=== PATIENT | male | born 1985 | race Caucasian/White ===

== ENCOUNTER 2017-10-03 13:56 | Inpatient (IN) ==
[2017-10-03] MEDS ORDERED: methylPREDNISolone 125 MG/2 ML VIAL IVP ONE (14:11)
[2017-10-03] MEDS ORDERED: Ipratropium/Albuterol Neb 3 ML IH ONE (14:11)
--- NOTE | 2017-10-03 14:15 | Emergency Department Note ---
Disposition Clinical Impression: Asthma with exacerbation, Severe persistent asthma, Influenza A, Fever Disposition: Admitted As Inpatient Condition: Good Time of Disposition: 15:56 SOB HPI - General Chief Complaint: ED Shortness of Breath/Dyspnea Stated Complaint: "asthma" Time Seen by Provider: 10/03/17 14:04 Source: patient Mode of arrival: ambulatory Limitations: no limitations Nursing Notes Reviewed: Yes Vital Signs Reviewed: Yes - History of Present Illness Patient presents to the ED with chief complaint of shortness of breath. Patient has a history of asthma that is quite severe and uncontrolled requiring multiple admissions and previous intubations. States he recently underwent thermoplasty here, which did not help. States he is on multiple maintenance medicines, but no daily oral steroids. 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 Last night he started having difficulty breathing and woke up this morning and it was significantly worse. Has a nonproductive cough, fever up to 102. States he feels very rundown and tired. He said a few episodes of vomiting that he describes as posttussive emesis. No abdominal pain or diarrhea. States he normally goes to urgent care, but they were closed today and he feels a lot worse than his usual attacks. - Related Data Home Medications Medication Instructions Recorded Confirmed Fluticasone Propionate Nasal 1 spr NS BID 10/12/16 10/03/17 [Flonase] Loratadine [Allergy Relief] 10 mg PO HS 10/12/16 10/03/17 Montelukast [Singulair] 10 mg PO HS 10/12/16 10/03/17 Ranitidine HCl [Zantac] 300 mg PO HS 10/12/16 10/03/17 Budesonide/Formoterol 160/4.5 2 puff IH BIDR 10/03/17 10/03/17 [Symbicort 160/4.5] Losartan/Hydrochlorothiazide 1 each PO DAILY 10/03/17 10/03/17 [Hyzaar 100-25 Tablet] Tiotropium [place] [Spiriva 2 puff IH DAILY 10/03/17 10/03/17 Respimat] Previous Rx's Medication Instructions Recorded Albuterol Sulfate [Albuterol 2 puff IH Q4HR PRN #1 hfa.aer.ad 09/12/15 Inhaler] Allergies Allergy/AdvReac Type Severity Reaction Status Date / Time Amoxicillin Allergy Hives Verified 10/03/17 14:01 levofloxacin [From Levaquin] Allergy Hives Verified 10/12/16 08:34 Penicillins Allergy Hives Verified 10/12/16 08:34 fluticasone AdvReac Nose Bleed Verified 10/12/16 08:34 [From Advair Diskus] salmeterol AdvReac Nose Bleed Verified 10/12/16 08:34 [From Advair Diskus] All systems ED: reviewed and negative except as stated. Constitutional: Reports: fever Cardiovascular: Reports: chest pain Respiratory: Reports: cough, dyspnea, wheezes. Denies: sputum production Gastrointestinal: Reports: nausea, vomiting Neurological: Denies: headache Endocrine: Reports: fatigue Past Medical History - Past Medical History Attestation: Yes The following information was validated with the patient. Source: patient Medical history: Reports: asthma, hypertension Surgical history: Reports: other Psychiatric history: Reports: no psych history - Social History Smoking Status: Never smoker Smokeless Tobacco Status: Yes Alcohol use: Reports: none Drug use: Reports: none Physical Exam - General Limitations: no limitations General appearance: alert, in no apparent distress - Head Head exam: atraumatic, normocephalic, normal inspection - ENT ENT exam: normal exam, normal oropharynx, mucous membranes moist - Chest Chest inspection: Present: normal inspection, symmetric chest wall rise - Respiratory Respiratory exam: Present: respiratory distress (mild), wheezes (throughout, poor inspiration ), prolonged expiratory phase. Absent: normal lung sounds bilaterally, accessory muscle use - Cardiovascular Cardiovascular exam: Present: normal rhythm, tachycardia, normal heart sounds. Absent: regular rate - Abdominal Exam Abdominal exam: Present: soft, Non-Tender. Absent: tenderness, distention, guarding, rebound, rigidity - Extremities Exam Extremities exam: Present: normal inspection, full ROM. Absent: tenderness, pedal edema - Neurological Exam Neurological exam: Present: alert, oriented X3 - Psychiatric Psychiatric exam: Present: normal affect, normal mood - Skin Skin exam: Present: warm, dry, intact, normal color Course Course Narrative: Patient presenting with asthma exacerbation. We will give nebs, steroids and magnesium if necessary due to his long-standing history of severe asthma - Reevaluation(s) Reevaluation #1: Patient sounding better after nebs but still wheezing throughout. He also is flu positive. Will start Tamiflu and due to his history. We will admit him to the hospital for continued nebulized treatments and respiratory function monitoring. Patient agreeable to plan Vital Signs Temperature 101.5 F H 10/03/17 13:58 Pulse Rate 121 10/03/17 13:58 Respiratory Rate 20 10/03/17 13:58 Blood Pressure 143/86 10/03/17 13:58 O2 Sat by Pulse Oximetry 92 10/03/17 13:58 Temperature 101.5 F H 10/03/17 13:58 Pulse Rate 121 10/03/17 13:58 Respiratory Rate 20 10/03/17 14:19 Blood Pressure 143/86 10/03/17 13:58 O2 Sat by Pulse Oximetry 94 10/03/17 14:19 Oxygen Delivery Oxygen Delivery Room Air Shortness of Breath/Dyspnea - Medical Records Medical records reviewed: Yes I reviewed the patient's medical records. - Lab Data Lab results reviewed: Yes I reviewed the patient's lab results. Result diagrams: 10/03/17 14:29 10/03/17 14:29 Lab Results 10/03/17 10/03/17 10/03/17 Range/Units 14:29 14:29 14:29 WBC 12.3 H (4.3-11.1) K/mcL RBC 5.13 (4.19-5.50) M/mcL Hgb 15.7 (12.9-16.9) g/dL Hct 46.7 (37.5-50.1) % MCV 91.0 (83.0-100.0) fL MCH 30.6 (28.0-33.3) pg MCHC 33.6 (31.6-35.5) g/dL RDW 14.6 H (11.5-14.5) % Plt Count 333 (140-400) K/mcL MPV 8.4 L (9.4-12.4) fL Immature Gran % 0.6 (0-4) % Seg Neutrophils % 70.9 % Lymphocytes % 10.2 % Monocytes % 17.2 % Eosinophils % 0.7 % Basophils % 0.4 % Neutrophils # 8.7 (1.6-8.9) K/mcL Lymphocytes # 1.3 (0.6-4.6) K/mcL Monocytes # 2.1 H (0.0-1.3) K/mcL Eosinophils # 0.1 (0.0-0.6) K/mcL Basophils # 0.1 (0.0-0.2) K/mcL Sodium 136 (136-145) mEq/L Potassium 4.2 (3.5-5.1) mEq/L Chloride 101 (98-107) mEq/L Carbon Dioxide 26 (23-29) mEq/L BUN 22 H (6-20) mg/dL Creatinine 1.15 (0.70-1.30) mg/dL Est GFR ( Amer) > 60 (> 60) Est GFR (Non-Af Amer) > 60 (> 60) BUN/Creatinine Ratio 19 (6-26) Glucose 99 (70-105) mg/dL Calculated Osmolality 285 (280-300) Lactic Acid 1.2 (0.5-2.2) mmol/L Calcium 9.0 (8.6-10.3) mg/dL Troponin I (< 0.04) ng/mL 10/03/17 Range/Units 14:29 WBC (4.3-11.1) K/mcL RBC (4.19-5.50) M/mcL Hgb (12.9-16.9) g/dL Hct (37.5-50.1) % MCV (83.0-100.0) fL MCH (28.0-33.3) pg MCHC (31.6-35.5) g/dL RDW (11.5-14.5) % Plt Count (140-400) K/mcL MPV (9.4-12.4) fL Immature Gran % (0-4) % Seg Neutrophils % % Lymphocytes % % Monocytes % % Eosinophils % % Basophils % % Neutrophils # (1.6-8.9) K/mcL Lymphocytes # (0.6-4.6) K/mcL Monocytes # (0.0-1.3) K/mcL Eosinophils # (0.0-0.6) K/mcL Basophils # (0.0-0.2) K/mcL Sodium (136-145) mEq/L Potassium (3.5-5.1) mEq/L Chloride (98-107) mEq/L Carbon Dioxide (23-29) mEq/L BUN (6-20) mg/dL Creatinine (0.70-1.30) mg/dL Est GFR ( Amer) (> 60) Est GFR (Non-Af Amer) (> 60) BUN/Creatinine Ratio (6-26) Glucose (70-105) mg/dL Calculated Osmolality (280-300) Lactic Acid (0.5-2.2) mmol/L Calcium (8.6-10.3) mg/dL Troponin I < 0.03 (< 0.04) ng/mL - Radiology Data Radiology results reviewed: Yes I reviewed the patient's radiology results. - EKG Data EKG attestation: Yes I reviewed and interpreted this EKG. EKG results narrative: Sinus tach, rate 112, [place] interval 144, QRS 98, QTC 359, normal axis, no acute ischemic changes Attestation Statement - Attestation Attestation: I examined this patient and my medical decision-making was reviewed with the Resident Physician, Dr. Forman. I agree with the documented findings, disposition and treatment plan as described except to the extent set forth below. Patient is a 32-year-old white male with a history of severe asthma his had multiple admissions and prior intubations related to exacerbations in the past. 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 Patient states last night he began "not feeling well with mild upper respiratory symptoms generalized body aches and subjective fevers. Patient states this morning he was having worsening shortness of breath wheezing and came into the emergency department for evaluation. On arrival here he was moving very little air, hypoxic on room air and febrile. He should was complaining of 2 episodes of posttussive emesis he had this morning which was nonbloody. Agree patient's physical exam findings as documented. Patient was having respiratory distress on arrival with hypoxia and febrile. Patient was seen immediately and respiratory was called to start continuous DuoNeb treatments, IV was established IV steroids were administered patient was given antipyretics for fever and started on fluids. Labs were drawn and sent including cultures and influenza swab. Chest x-ray was also obtained. Chest x-ray is unremarkable for any infiltrates or changes. Influenza swab was positive for influenza A and otherwise labs unremarkable. Tamiflu was started IV and patient will be admitted for persistent severe asthma attack. Case was discussed with the hospitalist who accepted patient for admission.
[2017-10-03 14:34] LABS: Basophils # 0.1 K/mcL (0.0-0.2); Basophils % 0.4 %; Eosinophils # 0.1 K/mcL (0.0-0.6); Eosinophils % 0.7 %; Hematocrit 46.7 % (37.5-50.1); Hemoglobin 15.7 g/dL (12.9-16.9); Immature Granulocytes % 0.6 % (0-4); Lymphocytes # 1.3 K/mcL (0.6-4.6); Lymphocytes % 10.2 %; Mean Corpuscular HGB Conc 33.6 g/dL (31.6-35.5); Mean Corpuscular Hemoglobin 30.6 pg (28.0-33.3); Mean Platelet Volume 8.4 fL (9.4-12.4); Monocytes # 2.1 K/mcL (0.0-1.3); Monocytes % 17.2 %; Neutrophils # 8.7 K/mcL (1.6-8.9); Platelet Count 333 K/mcL (140-400); Red Blood Count 5.13 M/mcL (4.19-5.50); Red Cell Distribution Width 14.6 % (11.5-14.5); Segmented Neutrophils % 70.9 %
[2017-10-03 14:50] LABS: BUN/Creatinine Ratio 19 (6-26); Blood Urea Nitrogen 22 mg/dL (6-20); Carbon Dioxide 26 mEq/L (23-29); Chloride 101 mEq/L (98-107); Glucose 99 mg/dL (70-105); Osmolality,Calculated 285 (280-300); Potassium 4.2 mEq/L (3.5-5.1); Sodium 136 mEq/L (136-145); eGFR For African Americans > 60 (> 60); eGFR For Non-African Americans > 60 (> 60)
[2017-10-03] MEDS ORDERED: Naloxone 0.4 MG/ML INJ IVP PRN (16:46)
[2017-10-03] MEDS ORDERED: Ondansetron 4 MG/2 ML VIAL IVP PRN (16:46)
[2017-10-03] MEDS ORDERED: Acetaminophen 325 MG TABLET PO PRN (16:46)
[2017-10-03] MEDS ORDERED: MOM Conc 10 ML UD.LIQ PO PRN (16:46)
[2017-10-03] MEDS ORDERED: Mag Hydrox/Al Hydrox/Simeth 30 ML UDC PO PRN (16:46)
[2017-10-03] MEDS ORDERED: Albuterol 2.5 MG/3 ML NEBULIZER IH PRN (16:49)
[2017-10-03] MEDS ORDERED: Ibuprofen 400 MG TABLET PO PRN (18:15)
--- NOTE | 2017-10-03 18:43 | Internal Med History&Physical ---
Date of Encounter: 10/03/17 Time of Encounter: 18:00 Assessment and Plan (1) Acute respiratory failure with hypoxia Current visit: Yes Status: Acute Pt with known hx of severe asthma requiring intubation Currently requiring oxygen supplementation Wean as able Continuous pulse ox overnight. (2) Asthma with exacerbation Current visit: Yes Status: Acute Hx of severe asthma requiring intubation Wheezes at baseline Admit - oxygen, aerosols, steroids, cough suppressant Continue home meds as well Qualifiers: Asthma severity: severe Asthma persistence: persistent Qualified Code(s) : J45.51 - Severe persistent asthma with (acute) exacerbation (3) Influenza A Current visit: Yes Status: Acute Acute influenza A Tamiflu ordered (4) Hypertension Current visit: Yes Status: Chronic Continue home meds and follow Qualifiers: Hypertension type: essential hypertension Qualified Code(s): I10 - Essential (primary) hypertension (5) Smokeless tobacco use Current visit: Yes Status: Chronic Cessation counselling Internal Medicine - H&P: HPI Chief complaint: Shortness of breath Admitted From: Emergency Dept Plans for Post Hospital Care: Home History of present illness: Mr. Jeffries is a 32 year old male with hx of severe persistent asthma presented to ED with fever and dyspnea. Pt has hx of multiple hospitalizations and intubation in the past. Pt did get flu shot this year. 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 Over last 24 hours he has developed wheezing, dyspnea and fever with cough. In ED he was very dyspneic and tight. Influenza was positive. He responded to aerosols and is feeling much better at this time. Currently his only complaint is feeling clammy. His breathing is currently at baseline. He is high risk due to the potential for worsening respiratory symptoms and has been admitted inpatient status. Past Med Surg Social Fam HX - Past Medical History Source: patient, old records reviewed Medical history: asthma, hypertension Psychiatric history: no psych history - Past Surgical History Surgical History: other - Social History Smoking Status: Never smoker Smokeless Tobacco Status: Yes Alcohol use: none Drug use: none Occupational status: employed Current living situation: Home - Independent Activity Level: Independent ambulation Recent Out of Country Travel Within the Last 8 Weeks: No Exposure or Possible Exposure to Illness During Travel: No - Family History Mother Hx Family Cardiac Disorders: No Hx Family Respiratory Disorders: No Internal Medicine - H&P: Meds Albuterol Sulfate [Albuterol Inhaler] 2 puff IH Q4HR PRN #1 hfa.aer.ad 09/12/15 [Rx] Fluticasone Propionate Nasal [Flonase] 1 spr NS BID 10/12/16 [History] Loratadine [Allergy Relief] 10 mg PO HS 10/12/16 [History] Montelukast [Singulair] 10 mg PO HS 10/12/16 [History] Ranitidine HCl [Zantac] 300 mg PO HS 10/12/16 [History] Budesonide/Formoterol 160/4.5 [Symbicort 160/4.5] 2 puff IH BIDR 10/03/17 [ History] Losartan/Hydrochlorothiazide [Hyzaar 100-25 Tablet] 1 each PO DAILY 10/03/17 [ History] Tiotropium [place] [Spiriva Respimat] 2 puff IH DAILY 10/03/17 [History] 3 Allergy/AdvReac Type Severity Reaction Status Date / Time Amoxicillin Allergy Hives Verified 10/03/17 14:01 levofloxacin [From Levaquin] Allergy Hives Verified 10/12/16 08:34 Penicillins Allergy Hives Verified 10/12/16 08:34 fluticasone AdvReac Nose Bleed Verified 10/12/16 08:34 [From Advair Diskus] salmeterol AdvReac Nose Bleed Verified 10/12/16 08:34 [From Advair Diskus] All Systems PM: A 10-system review of systems was performed and is negative for pertinent findings except as documented above in the HPI. - Constitutional Constitutional: chills, fatigue, fever(s), malaise - EENT Eyes: no diplopia, no loss of vision, no pain Ears: no decreased hearing, no ear discharge Nose, mouth and throat: dry mouth, nasal congestion, sinus pressure, no mouth pain - Cardiovascular Cardiovascular ROS IM: diaphoresis, dyspnea, dyspnea on exertion, no chest pain , no edema, no orthopnea - Respiratory Respiratory: cough, dyspnea, dyspnea on exertion, wheezing, chest congestion - Gastrointestinal Gastrointestinal: no abdominal pain, no cramping, no melena, no odynophagia - Genitourinary Genitourinary ROS male: no difficulty urinating, no dysuria - Musculoskeletal Musculoskeletal ROS IM: no arthralgias, no muscle cramps, no numbness - Integumentary Integumentary IM: no erythema, no new lesions - Neurological Neurological ROS: no confusion, no loss of vision, no tingling - Psychiatric Psychiatric: no abnormal sleep pattern - Endocrine Endocrine IM: no cold intolerance, no flushing - Hematologic/Lymphatic Hematologic/Lymphatic: no easy bleeding - Allergic/Immunologic Allergic/Immunologic: no tongue swelling, no throat swelling - Constitutional Vitals: Temp Pulse Resp BP Pulse Ox 101.5 F H 121 19 121/64 94 10/03/17 13:58 10/03/17 13:58 10/03/17 17:35 10/03/17 17:35 10/03/17 14:19 General appearance: Present: mild distress, A&O X 3, pleasant, answers questions appropriately - Head Head exam: Present: atraumatic, normocephalic - Eye Eye exam: Present: EOMI, conjuntiva pink - ENT ENT exam: Present: mucous membranes moist - Neck Neck exam general surgery: Present: normal inspection. Absent: lymphadenopathy - Respiratory Respiratory exam: Present: prolonged expiratory phase, wheezes - Cardiovascular Cardiovascular exam: Present: RRR. Absent: systolic murmur, tachycardia - GI/Abdominal GI/Abdominal exam: Present: normal bowel sounds, soft. Absent: mass, tenderness - Extremities Exam Extremities exam: Present: warm. Absent: tenderness - Neurological Exam Neurological exam: Present: alert, oriented X3, no focal deficits - Psychiatric Psychiatric exam: Present: normal affect, normal mood - Skin Skin exam: Present: diaphoretic, warm. Absent: rash Internal Med - H&P Results - Labs CBC & Chem 7: 10/03/17 14:29 10/03/17 14:29
[2017-10-03] MEDS ORDERED: GuaiFENesin/Codeine Oral Soln 5 ML UDC PO PRN (18:50)
[2017-10-03] MEDS: MethylPREDNISolone 40 MG/ML VIAL IVP SCH (20:24)
[2017-10-03] MEDS: Fluticasone Propionate Nasal 50 MCG/SPRAY BOTTLE NS SCH (20:24)
[2017-10-03] MEDS: Ipratropium/Albuterol Neb 3 ML IH SCH ×2 (20:44→20:45)
[2017-10-03] MEDS: Budesonide/Formoterol 160/4.5 MDI IH SCH (20:45)
[2017-10-03] MEDS ORDERED: Loratadine 10 MG TABLET PO SCH (21:00)
[2017-10-03] MEDS ORDERED: Famotidine 20 MG TABLET PO SCH (21:00)
[2017-10-04] MEDS: Ipratropium/Albuterol Neb 3 ML IH SCH ×3 (00:08→08:23)
[2017-10-04] MEDS: MethylPREDNISolone 40 MG/ML VIAL IVP SCH ×2 (00:42→06:28)
[2017-10-04] MEDS: *HR* Heparin 5,000 UNIT/ML VIAL SQ SCH ×2 (00:43→08:33)
[2017-10-04 06:13] LABS: Basophils % 0.1 %; Hematocrit 45.9 % (37.5-50.1); Immature Granulocytes % 0.4 % (0-4); Lymphocytes # 0.8 K/mcL (0.6-4.6); Lymphocytes % 7.3 %; Mean Corpuscular HGB Conc 32.7 g/dL (31.6-35.5); Mean Corpuscular Volume 91.8 fL (83.0-100.0); Monocytes # 0.4 K/mcL (0.0-1.3); Monocytes % 3.4 %; Neutrophils # 9.9 K/mcL (1.6-8.9); Platelet Count 326 K/mcL (140-400); Red Cell Distribution Width 14.6 % (11.5-14.5); Segmented Neutrophils % 88.8 %
[2017-10-04 06:22] LABS: BUN/Creatinine Ratio 28 (6-26); Blood Urea Nitrogen 26 mg/dL (6-20); Calcium 8.8 mg/dL (8.6-10.3); Carbon Dioxide 25 mEq/L (23-29); Chloride 101 mEq/L (98-107); Glucose 170 mg/dL (70-105); Magnesium 2.1 mg/dL (1.6-2.6); Osmolality,Calculated 293 (280-300); Phosphorous 1.6 mg/dL (2.7-4.5); Potassium 3.8 mEq/L (3.5-5.1); Sodium 137 mEq/L (136-145); eGFR For African Americans > 60 (> 60); eGFR For Non-African Americans > 60 (> 60)
[2017-10-04 06:54] VITALS: BP 108/57
[2017-10-04] MEDS: Budesonide/Formoterol 160/4.5 MDI IH SCH (08:22)
[2017-10-04] MEDS: Fluticasone Propionate Nasal 50 MCG/SPRAY BOTTLE NS SCH (08:37)
--- NOTE | 2017-10-04 08:50 | Discharge Summary ---
<Ga Morrison - Last Filed: 10/04/17 12:48> Date of Encounter: 10/04/17 Time of Encounter: 08:50 - Discharge Diagnosis (1) Acute respiratory failure with hypoxia Priority: Primary Status: Resolved (2) Asthma with exacerbation Priority: Primary Status: Acute Qualifiers: Asthma severity: severe Asthma persistence: persistent Qualified Code(s) : J45.51 - Severe persistent asthma with (acute) exacerbation (3) Influenza A Priority: Primary Status: Acute (4) Hypertension Priority: Secondary Status: Chronic Qualifiers: Hypertension type: essential hypertension Qualified Code(s): I10 - Essential (primary) hypertension - Discharge Medications Prescriptions: Oseltamivir [Tamiflu] 75 mg PO BID #8 capsule predniSONE [PredniSONE] 60 mg PO DAILY #10 tablet Home Medications: Albuterol Sulfate [Albuterol Inhaler] 2 puff IH Q4HR PRN #1 hfa.aer.ad 09/12/15 [Rx] Fluticasone Propionate Nasal [Flonase] 1 spr NS BID 10/12/16 [History] Loratadine [Allergy Relief] 10 mg PO HS 10/12/16 [History] Montelukast [Singulair] 10 mg PO HS 10/12/16 [History] Ranitidine HCl [Zantac] 300 mg PO HS 10/12/16 [History] Budesonide/Formoterol 160/4.5 [Symbicort 160/4.5] 2 puff IH BIDR 10/03/17 [ History] Losartan/Hydrochlorothiazide [Hyzaar 100-25 Tablet] 1 each PO DAILY 10/03/17 [ History] Tiotropium [place] [Spiriva Respimat] 2 puff IH DAILY 10/03/17 [History] Oseltamivir [Tamiflu] 75 mg PO BID #8 capsule 10/04/17 [Rx] predniSONE [PredniSONE] 60 mg PO DAILY #10 tablet 10/04/17 [Rx] Allergies/Adverse Reactions: 3 Allergy/AdvReac Type Severity Reaction Status Date / Time Amoxicillin Allergy Hives Verified 10/03/17 14:01 levofloxacin [From Levaquin] Allergy Hives Verified 10/12/16 08:34 Penicillins Allergy Hives Verified 10/12/16 08:34 fluticasone AdvReac Nose Bleed Verified 10/12/16 08:34 [From Advair Diskus] salmeterol AdvReac Nose Bleed Verified 10/12/16 08:34 [From Advair Diskus] Date of admission: 10/03/17 16:46 Primary care physician: PCP NONE Consults: 10/03/17 16:49 Consult to Nurse Navigator [CONS] Routine Comment: Discharging clinician: Humberto Larios Anticipated date of discharge: 10/04/17 - Patient Status Disposition: Home, Self-Care Condition: Good Overall status at discharge: patient is back to baseline - Discharge Instructions Instructions: Asthma (DC), Moderate and Severe Persistent Asthma (DC), Bronchospasm (DC) Follow Up With: NONE,PCP [Primary Care Provider] - Deep Salazar MD [Non-Partnered Physician] - 10/10/17 2:30 pm Additional Instructions: Please follow-up with your PCP in 1 week Take all medications as prescribed Continue Tamiflu twice per day for 4 more days - Take your son to the PCP for Tamiflu as well Continue Prednisone 60mg for 10 more days Please call your PCP or return to office/ED if your symptoms worsen or show no improvement - Diet and Activity Activity: increase activity as tolerated Diet: advance to your usual diet Hospital course: Mr. Jeffries is a 32 year old male with hx of severe persistent asthma presented to ED with fever and dyspnea. Pt has hx of multiple hospitalizations and intubation in the past. Pt did get flu shot this year. Non-smoker. 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 Over last 24 hours he has developed wheezing, dyspnea and fever with cough. In ED he was very dyspneic and tight. CXR negative. Influenza was positive. He was subsequently admitted observation and monitored closely overnight. He responded well to aerosols, IV steroids and oxygen. Started on Tamiflu. Patient went on to state that his son did not get the flu shot this year. He was weaned off oxygen this morning and sating well in 90s. No SOB. Transitioned to PO steroids. Patient aware to get his son to PCP for Tamiflu. Mr. Jeffries was discharged in stable condition on 10/04/17 with adeute followup. All questions and concerns were answered. - Time Spent with Patient Total time spent providing and/or coordinating discharge services: - Constitutional Vitals: Temp Pulse Resp BP Pulse Ox 97.8 F 78 19 108/57 93 10/04/17 06:49 10/04/17 06:49 10/04/17 06:49 10/04/17 06:49 10/04/17 08:37 General appearance: Present: mild distress, A&O X 3, pleasant, answers questions appropriately - Head Head exam: Present: atraumatic, normocephalic - Eye Eye exam: Present: EOMI, normal appearance, conjuntiva pink, sclera anicteric - ENT ENT exam: Present: mucous membranes moist - Neck Neck exam general surgery: Present: supple, trachea midline - Respiratory Respiratory exam: Present: prolonged expiratory phase, wheezes. Absent: accessory muscle use, respiratory distress - Cardiovascular Cardiovascular exam: Present: RRR, +S1, +S2 - GI/Abdominal GI/Abdominal exam: Present: normal bowel sounds, soft. Absent: tenderness - Extremities Exam Extremities exam: Present: warm. Absent: pedal edema, tenderness - Neurological Exam Neurological exam: Present: alert, oriented X3, no focal deficits - Psychiatric Psychiatric exam: Present: normal affect, normal mood - Skin Skin exam: Present: dry, warm. Absent: diaphoretic <Humberto Larios - Last Filed: 10/04/17 19:17> Date of Encounter: 10/04/17 - Discharge Diagnosis (1) Acute respiratory failure with hypoxia Status: Resolved (2) Asthma with exacerbation Status: Acute Qualifiers: Asthma severity: severe Asthma persistence: persistent Qualified Code(s) : J45.51 - Severe persistent asthma with (acute) exacerbation (3) Influenza A Status: Acute (4) Hypertension Status: Chronic Qualifiers: Hypertension type: essential hypertension Qualified Code(s): I10 - Essential (primary) hypertension (5) Smokeless tobacco use Priority: Secondary Status: Chronic Date of admission: 10/03/17 16:46 Primary care physician: PCP NONE Consults: 10/03/17 16:49 Consult to Nurse Navigator [CONS] Routine Comment: Hospital course: Mr. Jeffries is a 32 year old male - Time Spent with Patient Total time spent providing and/or coordinating discharge services: 28min - Constitutional Vitals: Temp Pulse Resp BP Pulse Ox 97.8 F 78 18 108/57 93 10/04/17 06:49 10/04/17 06:49 10/04/17 08:23 10/04/17 06:49 10/04/17 08:37 - Attending Attestation I examined this patient and my medical decision-making was reviewed with the Resident Physician on 10/04/17. I agree with the documented findings, disposition and treatment plan as described except to the extent set forth below. Mr Jeffries has been admitted for acute asthma exacerbation and influenza. He is now afebrile with stable vitals. He is off oxygen and ready for discharge home. Exam Alert. Comfortable Mucus membranes dry Heart reg Scant wheeze Plan D/C home today.
[2017-10-04] MEDS ORDERED: predniSONE 20 MG TABLET PO SCH (09:00)
[2017-10-04] MEDS ORDERED: Losartan/HCTZ 50-12.5 TABLET PO SCH (09:00)
--- NOTE | 2017-10-04 16:50 | Electrocardiograph Report ---
[place] [id number] Test Date: 2017-10-03 Pat Name: Mir Jeffries Department: 103 Room: 3B14 Gender: M Project Architect: FELICITA : 1985 Requested By: Zachary Forman Order Number: [id number] Reading MD: Brandin Serrano DO Measurements Intervals [place] Rate: 112 P: 72 NE: 144 QRS: 91 QRSD: 98 T: 52 QT: 293 QTc: 359 Interpretive Statements SINUS TACHYCARDIA POSSIBLE RIGHT ATRIAL ENLARGEMENT RIGHTWARD AXIS Electronically Signed On 10-04-2017 16:48:46 EST by Brandin Serrano DO
== END 2017-10-04 11:37 | disposition home or self-care (01) | DRG 113 ==
LOC: EMEROO 13:56 → 3BNU 13:56
PROVIDERS: ADMIT Internal Medicine Nephrology; ATTEND Registered Nurse